=== PATIENT | male | born 1980 | race Caucasian/White ===

== ENCOUNTER → 2017-10-18 06:55 | Outpatient (CLI) | payer MEDICAID ==
[~2017-10-18 06:55] MED LIST: FISH OIL 1,0001 CA1 PO; IBUPROFEN800 MG PO; NORCO 10-325 TA1 TAB PO
[2017-10-29 09:06] VITALS: BMI 22.8
== END | disposition home or self-care (01) ==
LOC: D.MRI 06:55
DX: S46.211A Strain of muscle, fascia and tendon of other parts of biceps, right arm, initial encounter (principal); X58.XXXA Exposure to other specified factors, initial encounter

== ENCOUNTER 2017-10-29 08:40 | Day surgery (SDC) | payer MEDICAID ==
[~2017-10-29] VITALS: Ht 172.7 cm; Wt 68.0 kg
--- NOTE | ~2017-10-29 | OP ---
PATIENT NAME: DAMARIS POON MEDICAL RECORD: [id number] :78 LOCATION:[facility] ADMISSION DATE: SURGEON: LESLYE COX MD DATE OF OPERATION: 10/29/2017 PREOPERATIVE DIAGNOSIS: Distal biceps tendon rupture of the right upper extremity. POSTOPERATIVE DIAGNOSIS: Distal biceps tendon rupture of the right upper extremity. PROCEDURE: Open repair of distal biceps tendon rupture. SURGEON: Leslye Cox MD ANESTHESIA: General. INTRAOPERATIVE COMPLICATIONS: None. SUMMARY OF PATHOLOGIC FINDINGS: The patient had complete rupture of the distal biceps at its insertion point on the radial tuberosity consistent with the preoperative MRI and diagnosis as well as physical examination. IMPLANTS USED: Arthrex biceps tendon repair system. OPERATIVE SUMMARY IN DETAIL: After obtaining the appropriate preoperative orthopedic surgery consent as well as anesthetic consultation, evaluation and clearance, the patient was brought to the operating room and placed on the operating table in supine position. After adequate general laryngeal mask airway was administered, tourniquet was placed about the proximal aspect of the right upper extremity. Right upper extremity was then prepped and draped in routine sterile fashion. The arm was elevated and exsanguinated, tourniquet was inflated to 350 mmHg. A curvilinear incision was made across the antecubital fossa. Dissection was carried down. The cubital vein was very small. It was ligated. Dissection was then carried down the tendon where it was still attached to soft tissue, but was completely avulsed from the radial tuberosity. Careful dissection was carried back. The tendon was freed up. The bulbous end of it was trimmed. A #2 FiberLoop was then used to create a suture in Krackow method into the distal aspect of the biceps tendon. The FiberLoop was cut and the nitinol Carloz needle was then utilized to thread the button on to the 2 ends of the FiberWire. At this point, a guide pin was placed in the radial tuberosity under direct visualization in bicortical fashion. A size 8 reamer was then utilized to create a unicortical hole into the radial tuberosity itself. The button was then deployed transcortically, was then set against the far cortex and the biceps tendon was sutured into the 8-mm drill hole. It sutured nicely in. This was then tied tightly and the FiberWire was then woven back to the tendon gently and tied again. Having completed this, the wound was copiously irrigated. The incision was closed with #2 Vicryl, followed by #4 Ethibond, followed by #4 Prolene. Sterile dressings were applied. Tourniquet was deflated. The patient was awakened and taken to recovery room in stable condition. All final needle and sponge counts were correct. TRANSINT:[id number] Voice Confirmation ID: [id number] DOCUMENT ID: [id number] OPERATIVE REPORT [id number] DAMARIS POON MD, LESLYE DYE at 0936 CC: [id number] DICTATION DATE: 11/02/17 1134 MANAGER HIV: 11/02/17 1205 [facility] 10/29/[address] [id number]
[~2017-10-29 08:40] MED LIST changes: -FISH OIL 1,0001 CA1 PO; -NORCO 10-325 TA1 TAB PO
[2017-10-29] MEDS ORDERED: FISH OIL 1,0001 CA1 PO (09:00)
[2017-10-29 09:06] VITALS: BP 122/61; Ht 172.7 cm; Wt 68.0 kg
[2017-10-29] MEDS ORDERED: NORCO 10-325 TA1 TAB PO (12:02)
== END 2017-10-29 14:20 | disposition home or self-care (01) ==
LOC: D.OPS 08:40
DX: S46.211A Strain of muscle, fascia and tendon of other parts of biceps, right arm, initial encounter (principal); Z01.812 Encounter for preprocedural laboratory examination